=== PATIENT | female | born 1935 | race Hispanic/Latino ===

== ENCOUNTER 2024-11-13 09:28 | Day surgery (SDC) | payer MEDICARE ==
[2024-11-09 11:08] LABS: BASOPHILS % 0.4 % (0.0-1.0); EOSINOPHILS % 3.5 % (0.0-6.0); LYMPHOCYTES % 36.7 % (18.0-39.1); MONOCYTES % 7.2 % (4.4-11.3); NEUTROPHILS % 51.7 % (38.7-80.0); RED CELL DISTRIBUTION WIDTH 14.6 % (11.7-14.4)
[2024-11-09 11:39] LABS: EST GLOMERULAR FILTRATION RATE 48.0 ML/MIN (>=60)
[~2024-11-13] VITALS: Ht 165.1 cm; Wt 106.1 kg
[2024-11-13] VITALS (11 sets, daily range): BP systolic 95–150; BP diastolic 50–74; PULSE 57–71; RESP 14–21; TEMP 97.2–97.4; O2SAT 94–100
[~2024-11-13 09:28] MED LIST: AMITRIPTYLINE H10 MG PO; AMOX TR-K CLV1 EAC2 PO; ASPIRIN EC81 MG PO; ATORVASTATIN CA20 MG PO; B-121000 MCG PO; B12 ACTIVE1000 MCG PO; BENZONATATE200 MG PO; CALCIUM600 MG PO; CIPRO500 MG PO; FLAGYL250 MG PO; GABAPENTIN100 MG PO; KETOROLAC TROME10 MG PO; LEVAQUIN500 MG PO; LEVOTHYROXINE75 MCG PO; LIDODERM700 MG; LISINOPRIL10 MG PO; LOSARTAN POTASS25 MG PO; LYRICA75 MG PO; METOPROLOL SUCC50 MG PO; NEXIUM 24HR20 MG PO; TYLENOL WITH C1 EACH PO; ULTRAM50 MG PO; VALTREX500 MG PO; VITAMIN D325 MCG PO; ZOVIRAX800 MG PO
[2024-11-13] MEDS ORDERED: IOPAMIDOL 370 MG/ML 100 ML INFUS..BTL INJ ONE (11:40)
[2024-11-13] MEDS ORDERED: HEPARIN SOD/SOD CHLORIDE 2,000 ML ONE (11:40)
[2024-11-13] MEDS ORDERED: VERAPAMIL HCL 2.5 MG/ML 2 ML VIAL ONE (11:40)
[2024-11-13] MEDS ORDERED: LIDOCAINE HCL 2% LOCAL 20 ML VIAL ONE (11:40)
[2024-11-13] MEDS ORDERED: HEPARIN SOD (PORCINE) 1000 UNIT/ML 30ML ONE (11:40)
[2024-11-13] MEDS ORDERED: FENTANYL CITRATE/PF 100MCG/2 ML INJ ONE (12:00)
[2024-11-13] MEDS ORDERED: MIDAZOLAM HCL 2 MG/2 ML VIAL ONE ×2 (12:00→12:06)
== END 2024-11-13 13:30 | disposition home or self-care (01) ==
LOC: CATH LAB 09:28 → MERGE 11:30 → CATH LAB 13:30
PROVIDERS: ATTEND Internal Medicine Interventional Cardiology
DX: I25.118 Atherosclerotic heart disease of native coronary artery with other forms of angina pectoris (principal); I25.2 Old myocardial infarction; I10 Essential (primary) hypertension; E78.2 Mixed hyperlipidemia; Z01.812 Encounter for preprocedural laboratory examination; Z79.82 Long term (current) use of aspirin; Z79.899 Other long term (current) drug therapy; Z68.38 Body mass index [BMI] 38.0-38.9, adult; Z82.3 Family history of stroke
CPT/HCPCS: 36415; 76937; 80053; 85025; 93454; C1769 ×2; C1887; J1644; J2003; J2250; J3010; Q9967; 99152; 99153